=== PATIENT | female | born 1985 | race Caucasian/White ===

== ENCOUNTER → 2018-02-13 | Outpatient (CLI) | payer OTHER | LOC: FIMAGING 08:41 | PROVIDERS: ATTEND Internal Medicine | DX: Q96.8 Other variants of Turner's syndrome (principal); M81.0 Age-related osteoporosis without current pathological fracture; E55.9 Vitamin D deficiency, unspecified; M89.9 Disorder of bone, unspecified; Q20.9 Congenital malformation of cardiac chambers and connections, unspecified; Z82.62 Family history of osteoporosis ==